=== PATIENT | female | born 1980 | race Caucasian/White ===

== ENCOUNTER 2017-06-18 20:13 | Emergency (ER) | payer OTHER ==
[2017-06-18] MEDS ORDERED: METF-420 PO (20:41)
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
[2017-06-18 23:15] VITALS: BP 125/85
== END 2017-06-18 23:20 | disposition home or self-care (01) ==
LOC: ER 20:26
DX: S60.221A Contusion of right hand, initial encounter (principal); S70.02XA Contusion of left hip, initial encounter; S90.02XA Contusion of left ankle, initial encounter; V49.50XA Passenger injured in collision with unspecified motor vehicles in traffic accident, initial encounter
CPT/HCPCS: 99283

== ENCOUNTER 2017-07-11 19:58 | Emergency (ER) | payer SELFPAY ==
[~2017-07-11 19:58] MED LIST: METF-420 PO
--- NOTE | 2017-07-11 20:08 | ER Report ---
History and Physical Time Seen By MD: 20:08 GAGAN/JOHNNY CHIEF COMPLAINT: Headache HISTORY OF PRESENT ILLNESS: 37-year-old female patient presents to emergency room with complaint of headache. Patient states this started yesterday. She states that there is nothing seems to make the pain better or worse. She states that is very similar to a headache she had approximately 10 years ago which was caused by dental abscesses. She states that she is taken some medication to help with the headache but states that nothing seems to help. She denies having any vomiting but states she has been very nauseated. She states that she is concerned that the pain seemed to be radiate down to her chest. She states that she did check her blood sugar which was high yesterday, however today has been in the 140s. REVIEW OF SYSTEMS: Respiratory: No cough, no dyspnea. Cardiovascular: No chest pain, no palpitations. Gastrointestinal: As noted above Musculoskeletal: No back pain. Allergies: Coded Allergies: No Known Drug Allergies (Unverified , 07/11/17) Home Meds Reported Medications Metformin Hcl (METFORMIN HCL) 1,000 Mg Tablet, 1 TAB PO BID, TAB 06/18/17 Past Medical/Surgical History Patient has a past medical history of diabetes. Patient has a past surgical history of cholecystectomy. Reviewed Nurses Notes: Yes Hx Substance Use Disorder: No Constitutional Vital Sign - Last 24 Hours 07/11/17 07/11/17 07/11/17 07/11/17 20:00 20:03 20:11 20:15 Temp 98.0 Pulse ??? 82 91 Resp 16 11 B/P (MAP) 152/94 (113) 152/94 Pulse Ox 97 97 O2 Delivery Room Air 07/11/17 07/11/17 07/11/17 07/11/17 20:30 20:45 21:15 21:20 Pulse 85 92 95 Resp 14 9 19 B/P (MAP) 154/99 (117) 135/92 (106) Pulse Ox 95 94 96 07/11/17 21:45 Pulse 91 Pulse Ox 95 Physical Exam General Appearance: The patient is alert, has no immediate need for airway protection and no current signs of toxicity. ENT: Tympanic membranes are pearly-matute, auditory canals are patent, mucous membranes are moist. Respiratory: Chest is non tender, lungs are clear to auscultation. Cardiac: regular rate and rhythm Gastrointestinal: Abdomen is soft and non tender, no masses, bowel sounds normal. Musculoskeletal: Neck: Neck is supple and non tender. Extremities have full range of motion and are non tender. Skin: No rashes or lesions. Neuro: Patient is alert and oriented 4, cranial nerves II through XII grossly intact. DIFFERENTIAL DIAGNOSIS: After history and physical exam differential diagnosis was considered for headache including but not limited to subarachnoid hemorrhage , migraine headache, tension headache and infectious causes such as meningitis, pharyngitis and sinusitis. Included in the differential is influenza, dental abscess. Medical Decision Making Data Points Result Diagram: 07/11/17202607/11/172026 Laboratory Hematology Test 07/11/17 00:00 07/11/17 20:27 07/11/17 21:10 Respiratory Syncytial Virus (PCR) Positive (NEGATIVE) Red Blood Count 5.71 M/uL (4.17-5.56) Mean Corpuscular Volume 75.6 fL (80.0-96.0) Mean Corpuscular Hemoglobin 24.7 pg (26.0-33.0) Mean Corpuscular Hemoglobin Concent 32.7 g/dL (32.0-36.0) Red Cell Distribution Width 16.2 % (11.5-14.5) Mean Platelet Volume 9.5 fL (7.2-11.1) Neutrophils (%) (Auto) 54.4 % (39.4-72.5) Lymphocytes (%) (Auto) 39.2 % (17.6-49.6) Monocytes (%) (Auto) 4.4 % (4.1-12.4) Eosinophils (%) (Auto) 1.1 % (0.4-6.7) Basophils (%) (Auto) 0.9 % (0.3-1.4) Nucleated RBC Relative Count (auto) 0.0 /100WBC Neutrophils # (Auto) 7.8 K/uL (2.0-7.4) Lymphocytes # (Auto) 5.6 K/uL (1.3-3.6) Monocytes # (Auto) 0.6 K/uL (0.3-1.0) Eosinophils # (Auto) 0.2 K/uL (0.0-0.5) Basophils # (Auto) 0.1 K/uL (0.0-0.1) Nucleated RBC Absolute Count (auto) 0.01 K/uL Sodium Level 139 mmol/L (137-145) Potassium Level 3.4 mmol/L (3.5-5.0) Chloride Level 104 mmol/L (98-107) Carbon Dioxide Level 20 mmol/L (22-31) Blood Urea Nitrogen 12 mg/dl (7-18) Creatinine 0.50 mg/dl (0.52-1.04) Glomerular Filtration Rate Calc > 60.0 Random Glucose 108 mg/dl (75-110) Calcium Level 9.3 mg/dl (8.4-10.2) Total Bilirubin 0.3 mg/dl (0.2-1.3) Aspartate Amino Transf (AST/SGOT) 25 U/L (0-35) Alanine Aminotransferase (ALT/SGPT) 41 U/L (0-56) Alkaline Phosphatase 107 U/L (0-126) Troponin I < 0.012 ng/ml C-Reactive Protein 1.6 mg/dl (<1.0) Total Protein 7.9 gm/dl (6.3-8.2) Albumin 4.1 g/dl (3.5-5.0) Human Chorionic Gonadotropin, Qual Negative (NEGATIVE) Influenza Virus Type A (PCR) Negative (NEGATIVE) Influenza Virus Type B (PCR) Negative (NEGATIVE) Urine Color Yellow Urine Clarity Clear Urine pH 5.0 pH (4.8-9.5) Urine Specific Exira 1.023 Urine Protein 100 mg/dL (NEGATIVE) Urine Glucose (UA) Negative mg/dL (NEGATIVE) Urine Ketones Negative mg/dL (NEGATIVE) Urine Blood Negative (NEGATIVE) Urine Nitrite Negative (NEGATIVE) Urine Bilirubin Negative (NEGATIVE) Urine Urobilinogen Negative mg/dL (0.2-1.9) Urine Leukocyte Esterase Negative (NEGATIVE) Urine RBC <1 /HPF (0-2/HPF) Urine WBC 1 /HPF (0-5/HPF) Urine Squamous Epithelial Cells Few /LPF (</=FEW) Urine Bacteria Negative /HPF (NONE-FEW) Urine Mucus None /HPF (NONE-FEW) Chemistry Test 07/11/17 00:00 07/11/17 20:27 07/11/17 21:10 Respiratory Syncytial Virus (PCR) Positive (NEGATIVE) White Blood Count 14.3 k/uL (4.5-11.0) Red Blood Count 5.71 M/uL (4.17-5.56) Hemoglobin 14.1 g/dL (12.0-16.0) Hematocrit 43.2 % (34.0-47.0) Mean Corpuscular Volume 75.6 fL (80.0-96.0) Mean Corpuscular Hemoglobin 24.7 pg (26.0-33.0) Mean Corpuscular Hemoglobin Concent 32.7 g/dL (32.0-36.0) Red Cell Distribution Width 16.2 % (11.5-14.5) Platelet Count 304 K/uL (150-450) Mean Platelet Volume 9.5 fL (7.2-11.1) Neutrophils (%) (Auto) 54.4 % (39.4-72.5) Lymphocytes (%) (Auto) 39.2 % (17.6-49.6) Monocytes (%) (Auto) 4.4 % (4.1-12.4) Eosinophils (%) (Auto) 1.1 % (0.4-6.7) Basophils (%) (Auto) 0.9 % (0.3-1.4) Nucleated RBC Relative Count (auto) 0.0 /100WBC Neutrophils # (Auto) 7.8 K/uL (2.0-7.4) Lymphocytes # (Auto) 5.6 K/uL (1.3-3.6) Monocytes # (Auto) 0.6 K/uL (0.3-1.0) Eosinophils # (Auto) 0.2 K/uL (0.0-0.5) Basophils # (Auto) 0.1 K/uL (0.0-0.1) Nucleated RBC Absolute Count (auto) 0.01 K/uL Glomerular Filtration Rate Calc > 60.0 Calcium Level 9.3 mg/dl (8.4-10.2) Total Bilirubin 0.3 mg/dl (0.2-1.3) Aspartate Amino Transf (AST/SGOT) 25 U/L (0-35) Alanine Aminotransferase (ALT/SGPT) 41 U/L (0-56) Alkaline Phosphatase 107 U/L (0-126) Troponin I < 0.012 ng/ml C-Reactive Protein 1.6 mg/dl (<1.0) Total Protein 7.9 gm/dl (6.3-8.2) Albumin 4.1 g/dl (3.5-5.0) Human Chorionic Gonadotropin, Qual Negative (NEGATIVE) Influenza Virus Type A (PCR) Negative (NEGATIVE) Influenza Virus Type B (PCR) Negative (NEGATIVE) Urine Color Yellow Urine Clarity Clear Urine pH 5.0 pH (4.8-9.5) Urine Specific Exira 1.023 Urine Protein 100 mg/dL (NEGATIVE) Urine Glucose (UA) Negative mg/dL (NEGATIVE) Urine Ketones Negative mg/dL (NEGATIVE) Urine Blood Negative (NEGATIVE) Urine Nitrite Negative (NEGATIVE) Urine Bilirubin Negative (NEGATIVE) Urine Urobilinogen Negative mg/dL (0.2-1.9) Urine Leukocyte Esterase Negative (NEGATIVE) Urine RBC <1 /HPF (0-2/HPF) Urine WBC 1 /HPF (0-5/HPF) Urine Squamous Epithelial Cells Few /LPF (</=FEW) Urine Bacteria Negative /HPF (NONE-FEW) Urine Mucus None /HPF (NONE-FEW) Urinalysis Test 07/11/17 21:10 Urine Color Yellow Urine Clarity Clear Urine pH 5.0 pH (4.8-9.5) Urine Specific Exira 1.023 Urine Protein 100 mg/dL (NEGATIVE) Urine Glucose (UA) Negative mg/dL (NEGATIVE) Urine Ketones Negative mg/dL (NEGATIVE) Urine Blood Negative (NEGATIVE) Urine Nitrite Negative (NEGATIVE) Urine Bilirubin Negative (NEGATIVE) Urine Urobilinogen Negative mg/dL (0.2-1.9) Urine Leukocyte Esterase Negative (NEGATIVE) Urine RBC <1 /HPF (0-2/HPF) Urine WBC 1 /HPF (0-5/HPF) Urine Squamous Epithelial Cells Few /LPF (</=FEW) Urine Bacteria Negative /HPF (NONE-FEW) Urine Mucus None /HPF (NONE-FEW) EKG/Imaging EKG Interpretation 12 lead EKG: Rhythm: normal sinus rhythm [place]: normal QRS:: QT, measuring proximally [address] segments: normal Imaging EXAMINATION: Chest 2 Views HISTORY: Chest pain. COMPARISON: None. FINDINGS: The lungs are clear. No focal consolidation or pleural fluid. No pneumothorax. Normal cardiomediastinal silhouette, with normal heart size and pulmonary vascularity. Visualized osseous structures are unremarkable. IMPRESSION: Negative chest. Report Dictated By: Cal Dillard MD at 07/11/2017 10:08 PM Report E-Signed By: Cal Dillard MD at 07/11/2017 10:09 PM EXAMINATION: HEAD W/O CONTRAST CLINICAL INDICATION: HEADACHE COMPARISON: No priors TECHNIQUE: Contiguous axial CT images of the brain were obtained without IV contrast. Sagittal and coronal reformatted images were also performed. One of the following dose optimization techniques was utilized in the performance of this exam: Automated exposure control; adjustment of the mA and/ or kV according to the patient's size; or use of an iterative reconstruction technique. Specific details can be referenced in the facility's radiology CT exam operational policy. RESULT: BRAIN: The ventricles are symmetric and normal in size. The brain parenchyma appears normal. The matute-white matter differentiation is preserved and the basilar cisterns are maintained. The cerebellum and brainstem appear normal. There is no mass, acute infarct, hemorrhage or shift of midline. VISUALIZED PARANASAL SINUSES & MASTOIDS: Incidental note is made of a small inferior left frontal osteoma measuring up to 7 mm. SKULL BASE & CRANIUM: Visualized osseous structures are intact. IMPRESSION: 1. No acute findings. 2. 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 Report Dictated By: Taran Garber MD at 07/11/2017 10:04 PM Report E-Signed By: Taran Garber MD at 07/11/2017 10:06 PM ED Course/Re-evaluation ED Course Patient was managed in exam room, history and physical were obtained. Differential diagnoses were considered. On examination patient had headache was located mostly on the left side of the head. She is nauseated but no vomiting. A CBC, CMP, troponin, EKG, chest x-ray, CT scan of the head was done. The labs were unremarkable except patient did have a college white count 14,000, I believe that is likely secondary to stress from having headache. CMP was unremarkable with a blood glucose of 108. Troponin was negative, EKG showed a normal sinus rhythm with QT prolongation. Chest x-ray was negative. An influenza screen was done which was negative for influenza, however a reflexive RSV was done which was positive. I discussed the findings of the labs and the imaging with the patient. We will go ahead and treat her with 30 mg of Toradol, 30 mg of Norflex, 12.5 mg of Phenergan and 25 mg of Benadryl. On reevaluation patient states she is having significant improvement in her headache. She is ready to be discharged home at this time. We will go ahead and discharge patient home, she is to follow-up with her primary care provider in the next week. Patient verbalized understanding and agreement. Decision to Disposition Date: Jul 11, 2017 Decision to Disposition Time: 22:28 Depart Departure Latest Vital Signs Vital Signs Date Time Temp Pulse Resp B/P (MAP) Pulse Ox O2 Delivery O2 Flow Rate FiO2 07/11/17 21:45 91 95 07/11/17 21:20 135/92 (106) 07/11/17 21:15 19 07/11/17 20:11 98.0 Room Air Impression: Primary Impression: Chest pain Additional Impressions: Headache RSV (respiratory syncytial virus infection) Condition: Improved Disposition: HOME OR SELF-CARE Patient Instructions: Acute Headache (ED) Additional Instructions: Increase fluid intake. Get plenty of rest. Follow up with your primary care provider in the next week. Return to the ER if condition worsens. Take Tylenol or Ibuprofen as needed for pain or fever. Problem Qualifiers Primary Impression: Chest pain Chest pain type: other chest pain Qualified Codes: R07.89 - Other chest pain Additional Impressions: Headache Headache type: unspecified Headache chronicity pattern: acute headache Intractability: not intractable Qualified Codes: R51 - Headache SADI MILNER Jul 11, 2017 20:08
--- NOTE | 2017-07-11 20:31 | EKG ---
FACILITY: [facility] - [place] PATIENT NAME: LENA POOL : [id number] MR: [id number] V: [id number] EXAM DATE: ORDERING PHYSICIAN: SADI MILNER TECHNOLOGIST: TUAN Test Reason : CHEST PRESSURE Blood Pressure : / mmHG Vent. Rate : 087 BPM Atrial Rate : 087 BPM P-R Int : 184 ms QRS Dur : 086 ms QT Int : 400 ms P-R-T Axes : 055 036 043 degrees QTc Int : 481 ms Normal sinus rhythm Prolonged QT No previous ECGs available Confirmed by TRISH MERCER ([id number]) on 07/12/2017 7:20:40 PM Referred By: Confirmed By:TRISH MERCER
[2017-07-11 20:38] LABS: PLATELET COUNT, AUTOMATED 304 K/uL (150-450)
[2017-07-11 21:20] VITALS: BP 135/92
--- NOTE | 2017-07-11 22:09 | RADIOLOGY IMAGING REPORT ---
FACILITY: [facility] - [place] PATIENT NAME: Hedy Sawant : 1980 MR: [id number] V: [id number] EXAM DATE: ORDERING PHYSICIAN: SADI MILNER TECHNOLOGIST: Location: [facility] [place] Patient: Hedy Sawant : 1980 Visit/Account:[id number] Date of Sevice: 07/11/2017 EXAMINATION: HEAD W/O CONTRAST CLINICAL INDICATION: HEADACHE COMPARISON: No priors TECHNIQUE: Contiguous axial CT images of the brain were obtained without IV contrast. Sagittal and co kassi reformatted images were also performed. One of the following dose optimization techniques was utilized in the performance of this exam: Autom ated exposure control; adjustment of the mA and/or kV according to the patient's size; or use of an i terative reconstruction technique. Specific details can be referenced in the facility's radiology C T exam operational policy. RESULT: BRAIN: The ventricles are symmetric and normal in size. The brain parenchyma appears normal. The gra y-white matter differentiation is preserved and the basilar cisterns are maintained. The cerebellum a nd brainstem appear normal. There is no mass, acute infarct, hemorrhage or shift of midline. VISUALIZED PARANASAL SINUSES & MASTOIDS: Incidental note is made of a small inferior left frontal ost eoma measuring up to 7 mm. SKULL BASE & CRANIUM: Visualized osseous structures are intact. IMPRESSION: 1. No acute findings. 2. 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 Report Dictated By: Taran Garber MD at 07/11/2017 10:04 PM Report E-Signed By: Taran Garber MD at 07/11/2017 10:06 PM WSN:[id number]
--- NOTE | 2017-07-11 22:13 | RADIOLOGY IMAGING REPORT ---
FACILITY: [facility] - [place] PATIENT NAME: Hedy Sawant : 1980 MR: [id number] V: [id number] EXAM DATE: ORDERING PHYSICIAN: SADI MILNER TECHNOLOGIST: Location: [facility] Patient: Hedy Sawant : 1980 Visit/Account:[id number] Date of Sevice: 07/11/2017 EXAMINATION: Chest 2 Views HISTORY: Chest pain. COMPARISON: None. FINDINGS: The lungs are clear. No focal consolidation or pleural fluid. No pneumothorax. Normal cardiomedias tinal silhouette, with normal heart size and pulmonary vascularity. Visualized osseous structures ar e unremarkable. IMPRESSION: Negative chest. Report Dictated By: Cal Dillard MD at 07/11/2017 10:08 PM Report E-Signed By: Cal Dillard MD at 07/11/2017 10:09 PM WSN:[id number]
[2017-07-11] MEDS ORDERED: KETOROLAC 30 MG/ML VIAL IVP ONE (22:20)
[2017-07-11] MEDS ORDERED: diphenhydrAMINE 50 MG/ML VIAL IVP ONE (22:20)
[2017-07-11] MEDS ORDERED: ORPHENADRINE 60MG/2ML INJ IVP ONE (22:20)
[2017-07-11] MEDS ORDERED: PROMETHAZINE 25 MG/ML 1 ML AMP IVP ONE (22:20)
== END 2017-07-11 23:13 | disposition home or self-care (01) ==
LOC: ER 20:04
DX: J21.0 Acute bronchiolitis due to respiratory syncytial virus (principal); R07.89 Other chest pain; R51 Headache
CPT/HCPCS: 70450; 71046; 81001; 84484; 84703; 85025; 86140; 87502; 87798; 93005; 96374; 96375; 99284; J1200; J1885; J2360; J2550; 82040; 82247; 82310; 82374; 82435; 82565; 82947; 84075; 84132; 84155; 84295; 84450; 84460; 84520